=== PATIENT | female | born 2000 | race African-American/Black ===

== ENCOUNTER 2023-09-23 12:02 | Emergency (ER) | payer SELFPAY ==
[2023-09-23 12:54] LABS: #Basophils 0.02 10x3/uL (0.0-0.2); #Eosinphils 0.06 10x3/uL (0.0-0.5); #Monocytes 0.58 10x3/uL (0.0-1.1); #Neutrophils 6.58 10x3/uL (1.5-8.4); %Basophils 0.2 % (0.0-2.0); %Eosinophils 0.6 % (0.0-6.0); %Lymphocytes 24.2 % (18.0-47.0); %Neutrophils 68.5 % (40.0-75.0); Hemoglobin 12.8 g/dL (12.0-15.5); Mean Corpuscular HGB CONC 34.6 g/dL (32.0-36.0); Mean Corpuscular Volume 86.7 fL (81.6-98.3); Mean Platelet Volume 9.1 fL (7.4-10.4); Platelet Count 251 10x3/uL (150-450); RBC Distribution Width 12.2 % (11.5-14.5); Red Blood Cell (RBC) Count 4.27 10x6/uL (3.90-5.03); White Blood Cell (WBC) Count 9.6 10x3/uL (3.5-10.5)
[2023-09-23 13:15] LABS: ALT (SGPT) 21 U/L (8-55); AST (SGOT) 18 U/L (5-34); Albumin 3.4 g/dL (3.5-5.0); Alkaline Phosphatase 42 U/L (40-110); Anion Gap 11 mmol/L (10-20); BUN (Urea Nitrogen) 7 mg/dL (7.0-18.7); Bilirubin, Total 0.7 mg/dL (0.2-1.2); Calc. Creatinine Clearance 0 mL/min (70-130); Calcium 9.4 mg/dL (7.8-10.44); Carbon Dioxide 23 mmol/L (22-29); Chloride 105 mmol/L (98-107); Estimated GFR 126; Globulin 3.6 g/dL (2.4-3.5); Glucose 64 mg/dL (70-105); Lipase 20 U/L (8-78); Potassium 3.8 mmol/L (3.5-5.1); Sodium 135 mmol/L (136-145)
== END 2023-09-23 13:45 | disposition home or self-care (01) ==
LOC: CSHERS 12:02
DX: O20.0 Threatened abortion (principal); O99.332 Smoking (tobacco) complicating pregnancy, second trimester; F17.210 Nicotine dependence, cigarettes, uncomplicated; Z3A.16 16 weeks gestation of pregnancy
CPT/HCPCS: 76815; 80053; 83690; 84702; 85025; 86850; 86900; 86901

== ENCOUNTER 2024-03-22 06:00 | Inpatient (IN) | payer MEDICAID, OTHER ==
[2024-03-22 06:48] VITALS: BMI 28.1
[2024-03-22] MEDS ORDERED: Ondansetron PF 4 MG/2 ML Vial IVP PRN ×3 (08:00→21:35)
[2024-03-22] MEDS ORDERED: HYDROcodone/Acetaminophen 5/325 mg Tablet PO PRN (08:00)
[2024-03-22] MEDS ORDERED: hydrALAZINE 20 MG/ML VIAL SLOW IVP PRN (08:00)
[2024-03-22] MEDS ORDERED: Lactated Ringer's 1,000 ML IV SCH (08:00)
[2024-03-22] MEDS ORDERED: Misoprostol 200 MCG TAB PR PRN (08:00)
[2024-03-22] MEDS ORDERED: Tranexamic Acid 1,000 MG/10 ML VIAL IVP PRN (08:00)
[2024-03-22] MEDS ORDERED: Ibuprofen 800 MG TAB PO PRN (08:00)
[2024-03-22] MEDS ORDERED: Methylergonovine 0.2 MG/ML VIAL IM PRN (08:00)
[2024-03-22] MEDS ORDERED: Diphenoxylate HCl/Atropine Tablet PO PRN (08:00)
[2024-03-22] MEDS ORDERED: Promethazine HCl 25 MG/ML VIAL IM PRN ×3 (08:00→21:35)
[2024-03-22] MEDS ORDERED: Lidocaine 1% (PF) 30 ML VIAL SC PRN (08:00)
[2024-03-22] MEDS ORDERED: Carboprost 250 MCG/ML AMP IM PRN (08:00)
[2024-03-22] MEDS ORDERED: Acetaminophen 500 MG TAB PO PRN (08:00)
[2024-03-22] MEDS ORDERED: Oxytocin 30 units/NS 500 ML 500 ML IV SCH ×3 (08:00)
[2024-03-22 08:55] LABS: Hematocrit 34.7 % (34.9-44.5); Hemoglobin 11.3 g/dL (12.0-15.5); Mean Corpuscular HGB CONC 32.6 g/dL (32.0-36.0); Mean Corpuscular Hemoglobin 28.5 pg (27.0-33.0); Mean Corpuscular Volume 87.4 fL (81.6-98.3); Mean Platelet Volume 10.8 fL (7.4-10.4); Platelet Count 223 10x3/uL (150-450); RBC Distribution Width 13.4 % (11.5-14.5); Red Blood Cell (RBC) Count 3.97 10x6/uL (3.90-5.03); White Blood Cell (WBC) Count 12.6 10x3/uL (3.5-10.5)
[2024-03-22 09:28] LABS: Syphilis Antibody Nonreactive (Nonreactive); Syphilis Antibody Index 0.05 S/CO (<1.00 Non-Reactive)
[2024-03-22 09:30] LABS: HBsAg Index 0.22 S/CO (0-0.99); Hep B Surf Ag - L&D Non-Reactive S/CO (NonReactive)
[2024-03-22] MEDS: fentaNYL 50 mcg/mL 1 mL Vial SLOW IVP PRN (12:30)
[2024-03-22] MEDS: fentaNYL/Ropivacaine Epidural 100 ML ONE (17:46)
[2024-03-22] MEDS ORDERED: Lactated Ringer's 500 ML IV PRN (18:28)
[2024-03-22] MEDS ORDERED: diphenhydrAMINE 50 MG/ML VIAL IVP PRN ×2 (18:28→21:35)
[2024-03-22] MEDS ORDERED: Acetaminophen 325 MG TAB PO PRN (18:28)
[2024-03-22] MEDS ORDERED: ePHEDrine Sulfate 50 MG/10 ML VIAL SLOW IVP PRN (18:28)
[2024-03-22] MEDS ORDERED: Moisturizing Cream (Eucerin) 113 GM JAR TOP PRN ×2 (18:28→21:35)
[2024-03-22] MEDS ORDERED: Naloxone HCl 0.4 mg/ml Vial IVP PRN ×4 (18:28→21:35)
[2024-03-22] MEDS ORDERED: Communication Order-Pharmacy FS SCH ×2 (18:30→21:45)
[2024-03-22] MEDS ORDERED: fentaNYL 2 mcg/Ropivacaine 0.2% Epidural 100 ML CADD EPIDURAL SCH (18:30)
[2024-03-22] MEDS ORDERED: Bicitra 30 ML UDCUP PO PRN (20:49)
[2024-03-22] MEDS ORDERED: Famotidine/PF 20 mg/2ml Vial SLOW IVP PRN (20:49)
[2024-03-22] MEDS ORDERED: CEFAZOLIN 2 GM in Sodium Chloride 0.9% 100 ML IVPB SCH (21:00)
[2024-03-22] MEDS ORDERED: Azithromycin 500 MG in Sodium Chloride 0.9% 250 ML 250 ML IVPB SCH (21:00)
[2024-03-22] MEDS ORDERED: fentaNYL 50 mcg/mL 1 mL Vial SLOW IVP PRN (21:35)
[2024-03-22] MEDS ORDERED: Meperidine HCl/PF 25 MG (1 mL) VIAL SLOW IVP PRN (21:35)
[2024-03-22] MEDS ORDERED: Morphine 4 MG/ML VIAL SLOW IVP PRN (21:35)
[2024-03-22] MEDS ORDERED: Naloxone HCl 0.4 mg/ml Vial IV PRN (21:35)
[2024-03-22] MEDS: Ketorolac Tromethamine 30 MG (1 mL) VIAL IVP PRN (22:07)
[2024-03-22] MEDS: Ondansetron PF 4 MG/2 ML Vial IVP PRN (22:07)
[2024-03-23] MEDS ORDERED: Ondansetron PF 4 MG/2 ML Vial IVP PRN (00:24)
[2024-03-23] MEDS ORDERED: diphenhydrAMINE 25 MG CAP PO PRN (00:24)
[2024-03-23] MEDS ORDERED: Promethazine HCl 25 MG/ML VIAL IM PRN (00:24)
[2024-03-23] MEDS ORDERED: hydrALAZINE 20 MG/ML VIAL SLOW IVP PRN (00:24)
[2024-03-23] MEDS ORDERED: Bisacodyl 10 MG SUPP PR PRN (00:24)
[2024-03-23] MEDS ORDERED: Lanolin Ointment 7 GM TUBE TOP PRN (00:24)
[2024-03-23] MEDS: Oxytocin 30 units/NS 500 ML 500 ML ONE (00:33)
[2024-03-23] MEDS: Dexamethasone 10 MG/ML VIAL ONE (00:34)
[2024-03-23] MEDS: Azithromycin 500 MG VIAL ONE (00:34)
[2024-03-23] MEDS: CEFAZOLIN 2 GM VIAL ONE (00:34)
[2024-03-23] MEDS: PHENYLEPHRINE-NS 100 MCG/ML 10 ML SYRINGE ONE (00:35)
[2024-03-23] MEDS: Ondansetron PF 4 MG/2 ML Vial ONE (00:35)
[2024-03-23] MEDS: Oxytocin 10 UNITS/ML VIAL ONE (00:35)
[2024-03-23] MEDS: Morphine PF 10 MG/10 ML VIAL ONE (00:35)
[2024-03-23] MEDS ORDERED: Communication Order-Pharmacy FS SCH (00:45)
[2024-03-23] MEDS: Ketorolac Tromethamine 30 MG (1 mL) VIAL IVP SCH (04:28)
[2024-03-23 04:40] LABS: Hematocrit 27.1 % (34.9-44.5); Hemoglobin 9.2 g/dL (12.0-15.5); Mean Corpuscular HGB CONC 33.9 g/dL (32.0-36.0); Mean Corpuscular Hemoglobin 29.5 pg (27.0-33.0); Mean Corpuscular Volume 86.9 fL (81.6-98.3); Mean Platelet Volume 10.4 fL (7.4-10.4); Platelet Count 194 10x3/uL (150-450); RBC Distribution Width 13.4 % (11.5-14.5); Red Blood Cell (RBC) Count 3.12 10x6/uL (3.90-5.03); White Blood Cell (WBC) Count 19.69 10x3/uL (3.5-10.5)
[2024-03-23] MEDS: Boostrix 0.5 ML (Tdap) VIAL (>/=7 yrs of age) IM ONE (07:19)
[2024-03-23] MEDS: Prenatal Vitamin 1 TAB PO SCH (08:12)
[2024-03-23] MEDS: Ferrous Sulfate 325 MG TAB PO SCH (08:12)
[2024-03-23] MEDS: Docusate 100 MG CAP PO SCH (08:12)
[2024-03-23] MEDS ORDERED: Meperidine HCl/PF 25 MG (1 mL) VIAL IM PRN (09:45)
[2024-03-23] MEDS: HYDROcodone/Acetaminophen 5/325 mg Tablet PO PRN (10:02)
[2024-03-23] MEDS ORDERED: Ibuprofen 800 MG TAB PO PRN (21:37)
[2024-03-24] MEDS: Ibuprofen 800 MG TAB PO SCH (10:55)
[2024-03-24] MEDS ORDERED: Bupivacaine PF 0.5% 30 ML VIAL ONE (14:00)
[2024-03-24] MEDS: HYDROcodone/Acetaminophen 5/325 mg Tablet PO PRN (19:34)
[2024-03-24] MEDS: Simethicone Chewable 80 MG TAB PO PRN (22:56)
[2024-03-25 09:32] VITALS: BP 125/72; TEMP 97.7
== END 2024-03-25 12:15 | disposition home or self-care (01) | DRG 788 ==
LOC: CSHLD 06:21 → CSHPP 23:49
PROVIDERS: ADMIT Family Medicine; ATTEND Family Medicine
PROC: 10D00Z1 Extraction of Products of Conception, Low, Open Approach (ICD-10-PCS; principal; 2024-03-22)
PROC: 10907ZC Drainage of Amniotic Fluid, Therapeutic from Products of Conception, Via Natural or Artificial Opening (ICD-10-PCS; 2024-03-22)
PROC: 10H07YZ Insertion of Other Device into Products of Conception, Via Natural or Artificial Opening (ICD-10-PCS; 2024-03-22)
DX: O99.892 Other specified diseases and conditions complicating childbirth (principal); N73.6 Female pelvic peritoneal adhesions (postinfective); Z3A.39 39 weeks gestation of pregnancy; Z37.0 Single live birth; Z90.710 Acquired absence of both cervix and uterus
CPT/HCPCS: 36415; 51702; 85027; 86780; 86850; 86900; 86901; 87340; J0665; J1100; J1885; J2274; J2405; J2590; J3010